=== PATIENT | male | born 1955 | race Caucasian/White ===

== ENCOUNTER 2018-06-28 15:44 | Observation (INO) | payer BC, OTHER ==
[2018-06-28 16:28] LABS: BASOPHILS % (AUTO) 0.7 % (0.0-5.0); EOSINOPHILS % (AUTO) 1.5 % (0.0-8.0); HEMATOCRIT 36.5 % (42-54); LYMPHOCYTES % (AUTO) 25.5 % (21.0-51.0); MEAN CORPUSCULAR HEMOGLOBIN 30.1 pg (27.0-33.0); MEAN CORPUSCULAR HGB CONC 33.3 g/dL (32.0-36.0); MEAN CORPUSCULAR VOLUME 90.4 fL (79-99); MONOCYTES % (AUTO) 9.2 % (3.0-13.0); NEUTROPHILS % (AUTO) 63.1 % (40.0-77.0); PLATELET COUNT (AUTO) 230 K/uL (130-400); RED BLOOD CELL COUNT(AUTO) 4.04 MIL/uL (4.50-6.20); RED CELL DISTRIBUTION WIDTH 13.9 % (11.0-15.5); WHITE BLOOD COUNT (AUTO) 8.4 K/uL (4.8-10.8)
[2018-06-28 16:33] LABS: CREATININE 1.3 mg/dL (0.5-1.5); POTASSIUM 3.7 mmol/L (3.5-5.1)
[2018-06-28 16:37] LABS: INR 0.89 (0.85-1.15); PARTIAL THROMBOPLASTIN TIME 25.4 SEC (26.3-35.5); PROTHROMBIN TIME 9.4 SEC (9.6-11.6)
[2018-06-28 16:38] LABS: ALBUMIN 4.2 g/dL (3.5-5.0); BILIRUBIN,TOTAL 0.3 mg/dL (0.2-1.0); TOTAL PROTEIN, SERUM 7.5 g/dL (6.0-8.3)
[2018-06-28] MEDS ORDERED: ASPIRIN 325 MG TABLET ONE (16:45)
[2018-06-28] MEDS ORDERED: HYDROCODONE/ACETAMINOPHEN 5/325 MG TAB PO PRN (18:00)
[2018-06-28] MEDS ORDERED: ACETAMINOPHEN 325 MG TAB PO PRN (18:00)
[2018-06-28] MEDS ORDERED: FAMOTIDINE 20MG TAB 20 MG TAB PO SCH (21:00)
[2018-06-28 22:40] LABS: AMPHET/METH SCREEN,URINE NEGATIVE (NEGATIVE); BARBITURATE SCREEN, URINE NEGATIVE (NEGATIVE); BENZODIAZEPINES SCREEN,URINE NEGATIVE (NEGATIVE); CANNABINOID SCREEN,URINE POSITIVE (NEGATIVE); COCAINE SCREEN,URINE NEGATIVE (NEGATIVE); OPIATE SCREEN,URINE NEGATIVE (NEGATIVE); PHENCYCLIDINE SCREEN,URINE NEGATIVE (NEGATIVE)
[2018-06-29 04:36] LABS: HEMATOCRIT 32.4 % (42-54); MEAN CORPUSCULAR HEMOGLOBIN 30.2 pg (27.0-33.0); MEAN CORPUSCULAR VOLUME 91.6 fL (79-99); PLATELET COUNT (AUTO) 191 K/uL (130-400); RED BLOOD CELL COUNT(AUTO) 3.53 MIL/uL (4.50-6.20); WHITE BLOOD COUNT (AUTO) 6.9 K/uL (4.8-10.8)
[2018-06-29 04:55] LABS: POTASSIUM 3.8 mmol/L (3.5-5.1)
[2018-06-29] MEDS ORDERED: ENOXAPARIN SODIUM 40 MG/0.4 ML SYRINGE SQ SCH (09:00)
[2018-06-29] MEDS ORDERED: ATORVASTATIN CALCIUM 40 MG TABLET PO SCH (09:00)
[2018-06-29] MEDS ORDERED: FAMOTIDINE 20MG TAB 20 MG TAB ONE ×2 (09:52→22:49)
[2018-06-29] MEDS ORDERED: ENOXAPARIN SODIUM 40 MG/0.4 ML SYRINGE SQ ONE (09:52)
[2018-06-29] MEDS ORDERED: GADODIAMIDE 10 MMOL/20 ML ML IV ONE (13:24)
--- NOTE | 2018-06-29 15:35 | NUR ---
ELVIRA HAS BELONGINGS Addendum: 06/29/18 at 1538 by ALEX RIDDLE RN RN Amended: Links added.
[2018-06-29] MEDS ORDERED: SIMV20TA6 PO (15:45)
[2018-06-29] MEDS ORDERED: RANI150T7 PO (15:45)
[2018-06-29] MEDS ORDERED: TADA20TA PO (15:45)
[2018-06-29] MEDS ORDERED: ASPI-555 PO (15:45)
[2018-06-29] MEDS ORDERED: ASPIRIN 325 MG TABLET ONE (18:57)
[2018-06-30] MEDS ORDERED: TADALAFIL 20 MG PO SCH (08:30)
[2018-06-30] MEDS ORDERED: ATOR40TA69 PO (08:32)
[2018-06-30] MEDS ORDERED: ASPIRIN 81 MG EC TAB PO SCH (09:00)
[2018-06-30] MEDS ORDERED: RANITIDINE HCL 15 MG/1 ML PO SCH (09:00)
[2018-06-30] MEDS ORDERED: SIMVASTATIN 20 MG TABLET PO SCH (21:00)
== END 2018-06-30 09:18 | disposition home or self-care (01) ==
LOC: EDH 15:44 → EDHIP 18:00 → INTOOBSV 18:00 → EDHIP 06-30 09:19
PROVIDERS: ADMIT Hospitalist; ATTEND Hospitalist
DX: G45.9 Transient cerebral ischemic attack, unspecified (principal); E78.5 Hyperlipidemia, unspecified; Z87.891 Personal history of nicotine dependence; Z82.3 Family history of stroke; Z83.3 Family history of diabetes mellitus; Z79.899 Other long term (current) drug therapy
CPT/HCPCS: 36415 ×2; 70450; 70553; 71045; 80048; 80053; 80305; 82550; 82948; 84484; 85025; 85027; 85610; 85730; 93005; 93880; 99283; A9579; G0378 ×39; J1650